=== PATIENT | female | born 1995 | race Caucasian/White ===

== ENCOUNTER 2022-04-24 10:55 | Emergency (ER) | payer SELFPAY ==
[~2022-04-24] VITALS: Ht 175.3 cm; Wt 65.8 kg
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
--- NOTE | 2022-04-24 11:17 | NUR ---
AT BEDSIDE FOR EVAL
[2022-04-24] MEDS ORDERED: METH750T3 PO (11:30)
[2022-04-24] MEDS ORDERED: IBUPROFEN 600 MG TABLET ONE (11:36)
[2022-04-24] MEDS: IBUPROFEN 600 MG TABLET PO ONE (11:37)
[2022-04-24 11:42] VITALS: BP 110/60
--- NOTE | 2022-04-24 11:43 | NUR ---
Patient discharged to home in stable condition. Written and verbal after care instructions given. Patient verbalizes understanding of instruction.
== END 2022-04-24 11:43 | disposition home or self-care (01) ==
LOC: ER 10:55
DX: S13.4XXA Sprain of ligaments of cervical spine, initial encounter (principal); Z79.899 Other long term (current) drug therapy; V89.2XXA Person injured in unspecified motor-vehicle accident, traffic, initial encounter; Y93.89 Activity, other specified; Y92.89 Other specified places as the place of occurrence of the external cause; Y99.8 Other external cause status